=== PATIENT | female | born 1985 ===

== ENCOUNTER 2018-07-20 10:55 | Outpatient (CLI) | payer OTHER ==
[~2018-07-20 10:55] MED LIST: FERRLECIT IV; HYZAAR 100-251 UDTAB; METOPROLOL SUCC50 MG PO; NORVASC5 MG; PROCRIT 10000 UNIT SUBCUTANEO
== END 2018-07-20 17:00 | disposition home or self-care (01) ==
LOC: SONOGRAMA 10:55 → MAMO-SONO 11:15 → SONOGRAMA 17:00
DX: N93.8 Other specified abnormal uterine and vaginal bleeding (principal)